=== PATIENT | female | born 1985 | race American Indian/Alaskan Native ===

== ENCOUNTER 2018-03-19 19:42 | Emergency (ER) | payer OTHER ==
[2018-03-19 22:04] LABS: Mean Corpuscular HGB Conc 28 % (30-34); Platelet Count 252 K/mm3 (140-440); Red Blood Count 4.01 M/mm3 (3.65-5.03)
[2018-03-19 22:43] LABS: Mean Corpuscular Hemoglobin 17 pg (28-32); Mean Corpuscular Volume 60 fl (79-97); Red Cell Distribution Width 21.8 % (13.2-15.2)
[2018-03-19 22:56] LABS: Hemoglobin 6.6 gm/dl (10.1-14.3)
[2018-03-20 02:06] LABS: Total Cells Counted 100
[2018-03-20 02:07] LABS: Anisocytosis 2+; Giant Platelets Few; Hypochromasia 3+; Macrocytosis Few; Platelet Estimate Consistent w Auto
[2018-03-20] MEDS ORDERED: NACL 0.9% 500 ML 500 ML IV ONE (04:29)
--- NOTE | 2018-03-20 06:15 | Emergency Department Report ---
HPI - General Chief Complaint: Recheck/Abnormal Lab/Rx Time Seen by Provider: 03/20/18 04:27 - HPI HPI: This is a 32-year-old female presents to the emergency department for a blood transfusion. The patient was seen by her MAT WEAVER, who had notified her of a recent blood count that was drawn, last Sunday, that showed a hemoglobin of 6.3. The patient has a history of fibroids for which she currently feels with and has a history of previous fibroid surgeries. She has a history of heavy menstrual cycles. The patient says that she often feels cold all the time and has been eating a lot of ice. The MAT WEAVER did not feel that iron transfusion would be sufficient with her low hemoglobin and recommended that they come to the emergency department for a possible transfusion. Patient denies any chest pain, shortness breath, fever. ED Past Medical Hx - Past Medical History Previous Medical History?: Yes Additional medical history: fibroids - Surgical History Past Surgical History?: Yes Additional Surgical History: embolization - Social History Smoking Status: Never Smoker Substance Use Type: None ED Review of Systems ROS: Stated complaint: BLOOD ORDERS Other details as noted in HPI Comment: All other systems reviewed and negative Constitutional: denies: chills, fever Eyes: denies: eye pain, eye discharge, vision change ENT: denies: ear pain, throat pain Respiratory: denies: cough, wheezing Cardiovascular: denies: chest pain, edema Gastrointestinal: denies: abdominal pain, nausea, diarrhea Genitourinary: denies: dysuria, discharge Musculoskeletal: denies: back pain, arthralgia Skin: denies: rash, change in color Neurological: denies: headache, numbness Physical Exam - Physical Exam Vital Signs: Vital Signs 03/19/18 03/20/18 03/20/18 21:35 02:03 04:07 Temperature 97.5 F L 98.3 F Pulse Rate 93 H 87 Respiratory 18 16 18 Rate Blood Pressure 138/65 138/82 Blood Pressure [Left] O2 Sat by Pulse 100 99 98 Oximetry 03/20/18 03/20/18 03/20/18 04:13 04:20 04:30 Temperature Pulse Rate Respiratory Rate Blood Pressure 122/82 122/82 122/82 Blood Pressure [Left] O2 Sat by Pulse 99 100 100 Oximetry 03/20/18 03/20/18 03/20/18 04:40 04:50 05:00 Temperature Pulse Rate Respiratory Rate Blood Pressure 122/82 122/82 120/81 Blood Pressure [Left] O2 Sat by Pulse 100 100 Oximetry 03/20/18 03/20/18 03/20/18 05:10 05:20 05:30 Temperature Pulse Rate Respiratory Rate Blood Pressure 120/81 120/81 120/81 Blood Pressure [Left] O2 Sat by Pulse 100 100 100 Oximetry 03/20/18 03/20/18 03/20/18 05:40 05:50 06:00 Temperature Pulse Rate Respiratory Rate Blood Pressure 120/81 120/81 114/72 Blood Pressure [Left] O2 Sat by Pulse 100 100 100 Oximetry 03/20/18 06:03 Temperature 98.6 F Pulse Rate 107 H Respiratory 14 Rate Blood Pressure Blood Pressure 114/72 [Left] O2 Sat by Pulse 100 Oximetry Physical Exam: GENERAL: The patient is well-developed well-nourished. HENT: Normocephalic. Atraumatic. Patient has moist mucous membranes. EYES: Extraocular motions are intact. Pupils equal reactive to light bilaterally. Pale conjunctiva. NECK: Supple. Trachea is midline. CHEST/LUNGS: Clear to auscultation. There is no respiratory distress noted. HEART/CARDIOVASCULAR: Regular. There is no tachycardia. There is no murmur. ABDOMEN: Abdomen is soft, nontender. Patient has normal bowel sounds. There is no abdominal distention. SKIN: Skin is warm and dry. NEURO: The patient is awake, alert, and oriented. The patient is cooperative. The patient has no focal neurologic deficits. The patient has normal speech. MUSCULOSKELETAL: There is no tenderness or deformity. There is no limitation range of motion. There is no evidence of acute injury. ED Course Vital Signs 03/19/18 03/20/18 03/20/18 21:35 02:03 04:07 Temperature 97.5 F L 98.3 F Pulse Rate 93 H 87 Respiratory 18 16 18 Rate Blood Pressure 138/65 138/82 Blood Pressure [Left] O2 Sat by Pulse 100 99 98 Oximetry 03/20/18 03/20/18 03/20/18 04:13 04:20 04:30 Temperature Pulse Rate Respiratory Rate Blood Pressure 122/82 122/82 122/82 Blood Pressure [Left] O2 Sat by Pulse 99 100 100 Oximetry 03/20/18 03/20/18 03/20/18 04:40 04:50 05:00 Temperature Pulse Rate Respiratory Rate Blood Pressure 122/82 122/82 120/81 Blood Pressure [Left] O2 Sat by Pulse 100 100 Oximetry 03/20/18 03/20/18 03/20/18 05:10 05:20 05:30 Temperature Pulse Rate Respiratory Rate Blood Pressure 120/81 120/81 120/81 Blood Pressure [Left] O2 Sat by Pulse 100 100 100 Oximetry 03/20/18 03/20/18 03/20/18 05:40 05:50 06:00 Temperature Pulse Rate Respiratory Rate Blood Pressure 120/81 120/81 114/72 Blood Pressure [Left] O2 Sat by Pulse 100 100 100 Oximetry 03/20/18 06:03 Temperature 98.6 F Pulse Rate 107 H Respiratory 14 Rate Blood Pressure Blood Pressure 114/72 [Left] O2 Sat by Pulse 100 Oximetry ED Medical Decision Making - Lab Data Result diagrams: 03/19/18 21:49 03/20/18 06:54 - Medical Decision Making This patient presents with some anemia with a hemoglobin of 6.6. She has some history of anemia secondary to heavy menstrual cycle bleeding and fibroids. She was sent in by the MAT WEAVER for a blood transfusion. The patient is mostly symptomatic other than eating a lot of ice and some fatigue but she does not appear to have any respiratory distress, complaints of chest pain. Vital signs stable and being afebrile. Patient was given a transfusion of 2 units of packed red blood cells which should take her up to about a hemoglobin of 8.6. The patient was monitored and had no reactions to the transfusion. The patient has been instructed to follow up with her MAT WEAVER in the next few days and to restart her iron supplements. She will return to the ER with any worsening of her symptoms or any acute distress. - Differential Diagnosis iron deficiency, blood loss anemia, B12 deficiency, beta thalassemia Critical Care Time: No Critical care attestation.: If time is entered above; I have spent that time in minutes in the direct care of this critically ill patient, excluding procedure time. ED Disposition Clinical Impression: Anemia requiring transfusions, History of uterine fibroid Menorrhagia Qualifiers: Menorrahagia type: with onset of menstrual periods Qualified Code(s): N92.2 - Excessive menstruation at puberty Disposition: DC-01 TO HOME OR SELFCARE Is pt being admited?: No Condition: Stable Instructions: Iron Rich Diet (ED), Iron Deficiency Anemia (ED), Anemia (ED) Additional Instructions: Please follow-up with your MAT WEAVER as previously scheduled. Please restart your iron supplements. I have given information regarding an iron rich diet. Return to the emergency Department with any worsening of your symptoms or any acute distress including any shortness of breath or chest pains. Referrals: PRIMARY CARE, [Primary Care Provider] - 3-5 Days Time of Disposition: 06:17
[2018-03-20 07:33] LABS: BUN/Creatinine Ratio 17; Blood Urea Nitrogen 10 mg/dL (7-17); Hemolysis Index 27
[2018-03-20 08:27] VITALS: BP 113/72
== END 2018-03-20 09:26 | disposition home or self-care (01) ==
LOC: ED 19:42
DX: D64.9 Anemia, unspecified (principal); N92.2 Excessive menstruation at puberty; Z87.42 Personal history of other diseases of the female genital tract
CPT/HCPCS: 36415; 36430; 80048; 85007; 85025; 86850; 86900; 86901; 86920; 99283; J7040; P9016